=== PATIENT | male | born 1975 | race Caucasian/White ===

== ENCOUNTER 2016-08-10 21:22 | Inpatient (IN) | payer MEDICARE, OTHER ==
[2016-08-10 21:22] VITALS: BMI 22.8
--- NOTE | 2016-08-10 21:45 | C.PDOC ---
History Of Present Illness <Rosita Guillen - Last Filed: 08/10/16 22:49> <Zak Gutiérrez - Last Filed: 08/10/16 23:52> 41 y/o male in ED for detox from heroin., pt uses 10 bags of heroin ivda per day. pt last used about 3 hours ago. pt denies any physical complaints. pt sts he has hx of depression, but denies any current si, hi or ad. (Rosita Guillen) History Per: Patient History/Exam Limitations: no limitations Suicide/Self Injury Attempted (Context): None Recent travel outside of the [place]: No <Rosita Guillen - Last Filed: 08/10/16 22:49> <Zak Gutiérrez - Last Filed: 08/10/16 23:52> Time Seen by Provider: 08/10/16 21:40 Past Medical History Reviewed: Historical Data, Nursing Documentation, Vital Signs - Medical History PMH: Anxiety, Depression, HIV Denies: Diabetes, Hepatitis, HTN, Chronic Kidney Disease, Seizures, Sexually Transmitted Disease Surgical History: No Surg Hx Family History: States: Unknown Family Hx - Social History Hx Tobacco Use: Yes (light smoker) Hx Alcohol Use: Yes Hx Substance Use: Yes - Immunization History Hx Tetanus Toxoid Vaccination: No Hx Influenza Vaccination: No Hx Pneumococcal Vaccination: No <Rosita Guillen - Last Filed: 08/10/16 22:49> Review Of Systems Constitutional: Negative for: Fever, Chills Cardiovascular: Negative for: Chest Pain, Palpitations Respiratory: Negative for: Cough, Shortness of Breath Gastrointestinal: Negative for: Vomiting, Abdominal Pain Genitourinary: Negative for: Dysuria, Frequency, Incontinence, Hematuria Skin: Negative for: Rash Neurological: Negative for: Weakness, Numbness Psych: Negative for: Anxiety, Depression, Suicidal ideation <Rosita Guillen - Last Filed: 08/10/16 22:49> Physical Exam - Physical Exam Appears: Non-toxic, No Acute Distress Skin: Normal Color, Warm, Dry, Other (areas of scabs on upper arms from ivda) Head: Atraumatic, Normacephalic Eye(s): bilateral: Normal Inspection, PERRL Nose: Normal Oral Mucosa: Moist Tongue: Normal Appearing Lips: Normal Appearing Chest: Symmetrical, No Tenderness Cardiovascular: Rhythm Regular, No Murmur Respiratory: Normal Breath Sounds, No Rales, No Rhonchi, No Stridor, No Wheezing Gastrointestinal/Abdominal: Normal Exam, Soft, No Tenderness Neurological/Psych: Oriented x3, Normal Speech, Normal Cognition, No Normal Motor, No Normal Sensation <Rosita Guillen - Last Filed: 08/10/16 22:49> ED Course And Treatment - Laboratory Results Result Diagrams: 08/10/16 22:00 08/10/16 22:00 <Rosita Guillen - Last Filed: 08/10/16 22:49> - Laboratory Results Result Diagrams: 08/10/16 22:00 08/10/16 22:00 Lab Interpretation: Abnormal (opiates, benzo, cocaine) Reevaluation Time: 23:51 Reassessment Condition: Improved - Physician Consult Information Outcome Of Conversation: 2345: d/w Crisis Workers- ok to Detox <Zak Gutiérrez - Last Filed: 08/10/16 23:52> Medical Decision Making <Rosita Guillen - Last Filed: 08/10/16 22:49> <Zak Gutiérrez - Last Filed: 08/10/16 23:52> Medical Decision Making: pt pre-screened for detox program, 1039 pm pt with +1 le in urine and some white cells; denies nay dysuria, frequency or urgency. likely contaminated specimen. will order clean catch to be followed while pt in detox, otherwise pt is medically cleared for psychiatric evaluation discussed with Nocole from Crisis; pt to be fully evaluated after 11 pm. . (Rosita Guillen) Disposition - Disposition Disposition Time: 22:41 <Rosita Guillen - Last Filed: 08/10/16 22:49> Doctor Will See Patient In The: Hospital Counseled Patient/Family Regarding: Studies Performed, Diagnosis <Zak Gutiérrez - Last Filed: 08/10/16 23:52> - Disposition Disposition: HOSPITALIZED Condition: STABLE - Clinical Impression Clinical Impression: Heroin use disorder, moderate, dependence, Benzodiazepine abuse, Cocaine abuse , Depression
[2016-08-10 22:03] LABS: BASO % 0.5 % (0.0-2.0); EOS % 0.3 % (0.0-4.0); HEMATOCRIT 39.8 % (35.0-51.0); LYMPH # 0.9 K/uL (1.0-4.3); LYMPH % 18.2 % (20.0-40.0); MEAN CELL VOLUME 86.1 fL (80.0-94.0); MEAN CORPUSCULAR HEMOGLOBIN 28.7 pg (27.0-31.0); MEAN CORPUSCULAR HGB CONC 33.3 g/dL (33.0-37.0); MONO # 0.7 K/uL (0.0-0.8); MONO % 14.7 % (0.0-10.0); NRBC % 0.1 % (0.0-2.0); RED CELL DISTRIBUTION WIDTH 15.7 % (11.5-14.5); WHITE BLOOD COUNT 4.9 K/uL (4.8-10.8)
[2016-08-10 22:08] LABS: GRANULAR CAST 3 /lpf (0-1); RBC URINE 1 /hpf (0-3); URINE BILIRUBIN NEGATIVE (NEGATIVE); URINE BLOOD NEGATIVE (NEGATIVE); URINE COLOR Yellow (YELLOW); URINE GLUCOSE (UA) NORMAL (Normal); URINE HYALINE CAST >20 /lpf (0-2); URINE KETONE NEGATIVE (NEGATIVE); URINE LEUKOCYTE ESTERASE 1+ Leu/uL (Negative); URINE PROTEIN 1+ mg/dL (NEGATIVE); URINE UROBILINOGEN NORMAL mg/dL (0.2-1.0); WBC URINE 15 /hpf (0-5)
[2016-08-10 22:14] LABS: CHLORIDE 98 mmol/L (98-107)
[2016-08-10 22:15] LABS: SODIUM 139 mmol/L (132-148)
[2016-08-10 22:16] LABS: POTASSIUM 3.9 mmol/L (3.6-5.2)
[2016-08-10 22:18] LABS: ALB/GLOB RATIO 0.9 (1.0-2.1); ALKALINE PHOSPHATASE 83 U/L (38-126); ALT/SGPT 32 U/L (21-72); AST/SGOT 98 U/L (17-59); BILIRUBIN,TOTAL 0.7 mg/dL (0.2-1.3); BLOOD UREA NITROGEN 17 mg/dL (9-20); CARBON DIOXIDE 28 mmol/L (22-30); GFR AFRICAN-AMERICAN > 60; TOTAL PROTEIN 9.5 g/dL (6.3-8.3)
[2016-08-10 22:19] LABS: ALCOHOL SERUM < 10 mg/dl (0-10); CALCIUM 9.8 mg/dl (8.6-10.4); GLUCOSE,RANDOM 107 mg/dL (75-110)
[2016-08-10] MEDS ORDERED: Aluminum Hydroxide/Magnesium Hydroxide Susp (30 mL) PO PRN (23:56)
--- NOTE | 2016-08-11 14:39 | PCM.PSYCH ---
Initial Psychiatric Evaluation - Initial Psychiatric Evaluation Type of Admission: Voluntary Legal Status: Capacity Chief Complaint (in patient's own words): "I'm tired of using and I want to get clean" History of Present Illness and Precipitating Events: 41 y/o male, single, , has one daughter, lives home with his mother, unemployed and supporting his habit by asking for money from friends and family , with a psychiatric history of depression and no significant PMH. Pt was admitted for heroin Detox. He uses 10 bags of heroin (IV) and 1 gram of cocaine (IV) per day. He first started using cocaine and heroin when he was 22 y /o. Pt also admits to using 2-4 mg of Xanax per day and started using when he was in his mid 30s. Pt smokes a pack of cigarettes per day however he does not want a nicotine patch. He denies alcohol use. This is his 2nd admission to detox. His was admitted at [facility] 1 year ago. Pt has never been to rehab. Pt was also hospitalized twice at [facility] for severe depression and the last time he saw a psychiatrist was 2 years ago. Currently the patient denies any withdrawal symptoms. Pt denies homicidal or suicidal ideations, visual or auditory hallucinations or persecutory delusions. His plan is to attend after discharge. Psych Hx: Depression Fam Psych Hx: denies Fam Drug Hx: Father used heroin PMH: denies Current Medications: Active Medications Generic Name Dose Route Start Last Admin Trade Name Freq PRN Reason Stop Dose Admin Al Hydrox/Mg Hydrox/Simethicone 30 ml 08/10/16 23:56 Maalox 30 Ml PO TID PRN Indigestion / Heartburn Chlordiazepoxide 25 mg 08/11/16 18:00 Librium PO 08/15/16 17:59 Q6 BRENDAN Taper Chlordiazepoxide 25 mg 08/11/16 13:20 Librium PO Q4H PRN Alcohol Withdrawal Clonidine HCl 0.1 mg 08/10/16 23:56 Catapres PO Q8 PRN COWS Score More or Equal to 5 Gabapentin 300 mg 08/11/16 10:00 08/11/16 10:09 Neurontin PO Not Given BID BRENDAN Hydroxyzine HCl 50 mg 08/10/16 23:56 08/11/16 01:03 Atarax PO 50 mg Q6H PRN Administration Anxiety Ibuprofen 600 mg 08/10/16 23:56 Motrin Tab PO Q6H PRN Pain, moderate (4-7) Loperamide HCl 2 mg 08/10/16 23:56 Imodium PO Q8 PRN Diarrhea Ondansetron HCl 4 mg 08/10/16 23:56 Zofran Tab PO Q8 PRN Nausea/Vomiting Trazodone HCl 100 mg 08/10/16 23:56 08/11/16 01:03 Desyrel PO 100 mg HS PRN Administration Insomnia Past Psychiatric History - Past Psychiatric History Previous Treatment History: None Pertinent Medical Hx (Current Medical&Sleep Prob, Allergies): Allergies Allergy/AdvReac Type Severity Reaction Status Date / Time No Known Allergies Allergy Verified 08/10/16 21:48 No Known Home Med 08/10/16 Review of Systems - Psychiatric Psychiatric: Abnormal Sleep Pattern, Anxiety. absent: Auditory Hallucinations, Hallucinations, Homicidal Ideation, Irritability, Suicidal Ideation, Visual Hallucinations Mental Status Examination - Personal Presentation Personal Presentation: Looks stated age - Affect Affect: Constricted, Depressed - Motor Activity Motor Activity: Psychomotor Retardation - Reliability in Providing Information Reliability in Providing Information: Fair, Other Additional comments: Pt denies alcohol abuse and his recent labs suggest otherwise. - Speech Speech: Organized, Relevant, Coherent - Mood Mood: Depressed, Anxious - Formal Thought Process Formal Thought Process: No Impairment - Cognitive Functions Orientation: Person, Place, Time Sensorium: Drowsy, Lethargic Abstract Thinking: [place] Estimate of Intelligence: Below average Judgement: Intact, as evidence by: Insight regarding need for hospitalization Memory: Remote impaired as evidenced by: Inability to recall sig life events - Risk Risk: Seizure, Withdrawal, Diminished functioning DSM 5 DX - DSM 5 DSM 5 Diagnosis: Opiate use disorder- Severe Sedative, Hypnotic Use Disorder - severe Opioid withdrawal Sedative, hypnotic withdrawal Cocaine use disorder- severe Depressive disorder unspecified - Recommended/Plan of Treatment Treatment Recommendations and Plan of Treatment: Opiate use disorder- Severe -Subutex detox -Gabapentin -Support and psychoeducation -As needed medications and vitamins -Attend groups and activities -[place] and CBT for abstinence Sedative, Hypnotic Use Disorder - severe -Librium detox -Gabapentin -Support and psychoeducation -As needed medications and vitamins -Attend groups and activities -[place] and CBT for abstinence Cocaine use disorder- severe -Support and Psychoeducation -As needed medications and vitamins -Attend groups and activities -[place] and CBT for abstinence -Routine vitals daily 33 min Projected ELOS: 4 days - Smoking Cessation Smoking Cessation Initiated: Yes
[2016-08-11] MEDS ORDERED: Buprenorphine Hydrochloride 2 mg SL ONE ×2 (20:00→21:00)
[2016-08-12] MEDS: Buprenorphine Hydrochloride 2 mg SL SCH (09:41)
[2016-08-12 10:40] LABS: URINE BACTERIA RARE (<OCC); URINE BILIRUBIN NEGATIVE (NEGATIVE); URINE BLOOD NEGATIVE (NEGATIVE); URINE COLOR Yellow (YELLOW); URINE GLUCOSE (UA) NORMAL (Normal); URINE KETONE NEGATIVE (NEGATIVE); URINE LEUKOCYTE ESTERASE NEG Leu/uL (Negative); URINE PROTEIN NEGATIVE (NEGATIVE); URINE UROBILINOGEN NORMAL mg/dL (0.2-1.0); WBC URINE 1 /hpf (0-5)
--- NOTE | 2016-08-12 17:11 | PCM.PYCHPN ---
Psychiatric Progress Note - Psychiatric Progress Note Patient seen today, length of contact: 15 minutes Patient Chief Complaint: "I'm Doing alright" Problems Identified/Issues Discussed: Pt seen, chart reviewed, and case discussed with staff. Pt is doing better. He is complaining of heat/cold intolerance and night sweats. Pt denies homicidal or suicidal ideations, persecutory delusions or visual and auditory hallucinations. He has no medication side effects. Pt will be going to [facility] after discharge. Medication Change: Yes Medical Record Reviewed: Yes Mental Status Examination - Cognitive Function Orientation: Person, Place, Time Attention: Poor Concentration: Poor Association: WNL Fund of Knowledge: WNL - Mood Mood: Depressed, Anxious - Affect Affect: Constricted, Depressed - Formal Thought Process Formal Thought Process: No Impairment - Suicidal Ideation Suicidal Ideation: No - Homicidal Ideation Homicidal Ideation: No Goal/Treatment Plan - Goal/Treatment Plan Need for Continued Stay: Discharge may exacerbated symptoms, Severe functional impairment Progress Toward Problem(s) and Goals/Treatment Plan: Opiate use disorder- Severe -Subutex detox -Gabapentin -Support and psychoeducation -As needed medications and vitamins -Attend groups and activities -[place] and CBT for abstinence Sedative, Hypnotic Use Disorder - severe -Librium detox -Gabapentin -Support and psychoeducation -As needed medications and vitamins -Attend groups and activities -[place] and CBT for abstinence Cocaine use disorder- severe -Support and Psychoeducation -As needed medications and vitamins -Attend groups and activities -[place] and CBT for abstinence -Paul thorne
[2016-08-12 20:04] VITALS: RESP 18
[2016-08-13 06:25] VITALS: O2SAT 99
[2016-08-13] MEDS: Buprenorphine Hydrochloride 2 mg SL SCH (09:25)
[2016-08-13 09:31] VITALS: BP 124/86; PULSE 90; TEMP 97.8
--- NOTE | 2016-08-13 12:50 | PCM.PYCHDC ---
Mental Status Examination - Mental Status Examination Orientation: Person, Place, Time Memory: Intact Mood: Depressed, Anxious Affect: Constricted, Depressed Speech: Slurred Attention: Poor Concentration: Poor Association: WNL Fund of Knowledge: WNL Formal Thought Process: No Impairment Suicidal Ideation: No Current Homicidal Ideation?: No Discharge Summary - Discharge Note Reason for Hospitalization: Heroin detox Consultations:: List each consultation separately and include: 1. Reason for request. 2. Findings. 3. Follow-up Summary of Hospital Course include:: 1. Description of specific treatment plan utilized for patients during their course of treatmen. 2. Summarize the time- course for resolution of acute symptoms and/or regressed behaviors. 3. Describe issues identified and worked on during hospitalization. 4. Describe medication utilized. 5. Describe medical problems identified and treated. 6. Reassessment of suicide risk Summary of Hospital Course: On admission: 41 y/o male, single, , has one daughter, lives home with his mother, unemployed and supporting his habit by asking for money from friends and family , with a psychiatric history of depression and no significant PMH. Pt was admitted for heroin Detox. He uses 10 bags of heroin (IV) and 1 gram of cocaine (IV) per day. He first started using cocaine and heroin when he was 22 y /o. Pt also admits to using 2-4 mg of Xanax per day and started using when he was in his mid 30s. Pt smokes a pack of cigarettes per day however he does not want a nicotine patch. He denies alcohol use. This is his 2nd admission to detox. His was admitted at [facility] 1 year ago. Pt has never been to rehab. Pt was also hospitalized twice at [facility] for severe depression and the last time he saw a psychiatrist was 2 years ago. Currently the patient denies any withdrawal symptoms. Pt denies homicidal or suicidal ideations, visual or auditory hallucinations or persecutory delusions. His plan is to attend after discharge. Hospital course: Pt seen, chart reviewed, and case discussed with staff. Pt improved, CBT/CA used, denied any symptoms and then wanted to go AMA. Risks discussed, incl. relapse, OD and even - Final Diagnosis (DSM 5) Condition upon Discharge: STABLE DSM 5: Opioid use disorder- Severe Sedative, Hypnotic Use Disorder - severe Opioid withdrawal Sedative, hypnotic withdrawal Cocaine use disorder- severe Depressive disorder unspecified Disposition: AGAINST MEDICAL ADVICE Follow-up Treatment Plan: Use relapse prevention skills Attend NA Return to ER if experience suicidal ideation, homicidal ideation, agitation - Smoking Cessation Smoking Cessation Medication prescribed: No
== END 2016-08-13 12:00 | disposition home or self-care (01) | DRG 895 ==
LOC: C.ER 21:22 → C.7D 23:53 → C.9E 23:53
PROVIDERS: ADMIT Psychiatry & Neurology Psychiatry; ATTEND Psychiatry & Neurology Psychiatry
PROC: HZ2ZZZZ Detoxification Services for Substance Abuse Treatment (ICD-10-PCS; principal; 2016-08-10)
PROC: HZ52ZZZ Individual Psychotherapy for Substance Abuse Treatment, Cognitive-Behavioral (ICD-10-PCS; 2016-08-10)
PROC: HZ93ZZZ Pharmacotherapy for Substance Abuse Treatment, Antabuse (ICD-10-PCS; 2016-08-10)
PROC: HZ59ZZZ Individual Psychotherapy for Substance Abuse Treatment, Supportive (ICD-10-PCS; 2016-08-10)
PROC: HZ56ZZZ Individual Psychotherapy for Substance Abuse Treatment, Psychoeducation (ICD-10-PCS; 2016-08-10)
DX: F11.23 Opioid dependence with withdrawal (principal); F32.9 Major depressive disorder, single episode, unspecified; F14.90 Cocaine use, unspecified, uncomplicated; F13.239 Sedative, hypnotic or anxiolytic dependence with withdrawal, unspecified; F17.210 Nicotine dependence, cigarettes, uncomplicated

== ENCOUNTER 2017-07-18 15:48 | Inpatient (IN) | payer MEDICAID, MEDICARE, OTHER ==
[2017-07-18 15:49] VITALS: BMI 22.8
[2017-07-18 16:20] LABS: BASO % 0.7 % (0.0-2.0); EOS # 0.1 K/uL (0.0-0.7); EOS % 1.3 % (0.0-4.0); HEMOGLOBIN 12.3 g/dL (12.0-18.0); LYMPH # 0.6 K/uL (1.0-4.3); LYMPH % 14.6 % (20.0-40.0); MEAN CORPUSCULAR HEMOGLOBIN 28.2 pg (27.0-31.0); MEAN CORPUSCULAR HGB CONC 33.1 g/dL (33.0-37.0); MEAN PLATELET VOLUME 7.7 fL (7.2-11.7); MONO # 0.4 K/uL (0.0-0.8); MONO % 11.2 % (0.0-10.0); NEUT # 2.9 K/uL (1.8-7.0); NEUT % 72.2 % (50.0-75.0); NRBC % 0.1 % (0.0-2.0); RBC 4.38 Mil/uL (4.40-5.90); RED CELL DISTRIBUTION WIDTH 15.2 % (11.5-14.5)
[2017-07-18 16:25] LABS: SQUAMOUS EPITHIAL 1 /hpf (0-5); URINE BACTERIA RARE (<OCC); URINE BILIRUBIN NEGATIVE (NEGATIVE); URINE BLOOD NEGATIVE (NEGATIVE); URINE CLARITY Hazy (Clear); URINE COLOR Yellow (YELLOW); URINE GLUCOSE (UA) NORMAL (Normal); URINE LEUKOCYTE ESTERASE TRACE Leu/uL (Negative); URINE PROTEIN 1+ mg/dL (NEGATIVE)
[2017-07-18 16:31] LABS: ALB/GLOB RATIO 0.7 (1.0-2.1); ALBUMIN 4.1 g/dL (3.5-5.0); ALT/SGPT 62 U/L (21-72); AST/SGOT 60 U/L (17-59); BLOOD UREA NITROGEN 17 mg/dL (9-20); CALCIUM 9.2 mg/dl (8.6-10.4); GFR AFRICAN-AMERICAN > 60; GFR NON-AFRICAN AMERICAN > 60
[2017-07-18 16:35] LABS: BARBITURATES, UR NEGATIVE (NEGATIVE); BENZODIAZEPINES, UR NEGATIVE (NEGATIVE); OPIATES, UR POSITIVE (NEGATIVE); PHENCYCLIDINE, UR NEGATIVE (NEGATIVE)
[2017-07-18] MEDS ORDERED: Potassium Chloride 20 mEq ER Tab PO STA (16:52)
[2017-07-18] MEDS ORDERED: Potassium Chloride 20 mEq ER Tab PO ONE (17:06)
--- NOTE | 2017-07-18 19:06 | C.PDOC ---
History Of Present Illness 42-year-old male, PMHx includes Heroin abuse (IVDA), presents to the emergency department requesting detox. Patient denies any medical problems. No h/o seizures. No SI/HI. Time Seen by Provider: 07/18/17 15:57 Chief Complaint (Nursing): Substance Abuse History Per: Patient History/Exam Limitations: no limitations Past Medical History Reviewed: Historical Data, Nursing Documentation, Vital Signs Vital Signs: Last Vital Signs Temp 98.5 F 07/19/17 09:22 Pulse 70 07/19/17 09:22 Resp 18 07/19/17 09:22 BP 119/77 07/19/17 09:22 Pulse Ox 100 07/19/17 09:22 - Medical History PMH: Anxiety, Depression Denies: Diabetes (Patient denied), Hepatitis (Patient denied), HIV (Patient denied), HTN (Patient denied), Chronic Kidney Disease, Seizures (Patient denied) , Sexually Transmitted Disease (Patient denied) - [facility] Procedures DETOXIFICATION SERVICES FOR SUBSTANCE ABUSE TREATMENT (08/10/16) GROUP DOUBLE END SEWER FOR SUBSTANCE ABUSE TREATMENT, PSYCHOEDUCATION (03/12/16) INDIV PSYCHOTHERAPY FOR SUBSTANCE ABUSE TREATMENT, SUPPORT (08/10/16) INDIV PSYCHOTHERAPY FOR SUBSTANCE ABUSE, COGNITIV BEHAVIORAL (08/10/16) INDIV PSYCHOTHERAPY FOR SUBSTANCE ABUSE, PSYCHOEDUCATION (08/10/16) PHARMACOTHERAPY FOR SUBSTANCE ABUSE TREATMENT, ANTABUSE (08/10/16) PSYCHIA INTERV/EVAL NEC (10/05/14) Family History: States: No Known Family Hx - Social History Hx Tobacco Use: Yes (light smoker) Hx Alcohol Use: No Hx Substance Use: Yes - Immunization History Hx Tetanus Toxoid Vaccination: No Hx Influenza Vaccination: No Hx Pneumococcal Vaccination: No Review Of Systems Constitutional: Negative for: Fever Cardiovascular: Negative for: Chest Pain Respiratory: Negative for: Shortness of Breath Psych: Negative for: Suicidal ideation, Withdrawal Physical Exam - Physical Exam Appears: Non-toxic, No Acute Distress Skin: Warm, Dry, No Rash Head: Atraumatic, Normacephalic Eye(s): bilateral: Normal Inspection, EOMI Nose: Normal Oral Mucosa: Moist Neck: Normal ROM, Supple Chest: Symmetrical Cardiovascular: Rhythm Regular Respiratory: Normal Breath Sounds, No Accessory Muscle Use Extremity: Normal ROM, No Deformity, No Swelling, Other (track jara, B/L upper extremities) Neurological/Psych: Oriented x3, Normal Speech ED Course And Treatment - Laboratory Results Result Diagrams: 07/18/17 16:15 07/18/17 16:15 O2 Sat by Pulse Oximetry: 97 (RA) Pulse Ox Interpretation: Normal Progress Note: Patients urinalysis evaluated. Patient does not complain of any dysuria, frequency, hematuria, testicular pain, or penile discharge. Urine culture sent, outpt f/u suggested. Case discussed with Dr Cordova, agreed upon plan and treatment. Pt admitted for detox under Dr Brooks. Disposition - Disposition Disposition: HOSPITALIZED Disposition Time: 17:00 Condition: STABLE - Clinical Impression Clinical Impression: Opioid dependence, Hypokalemia - Scribe Statement The provider has reviewed the documentation as recorded by the Scribe (Anika Mckeon) All medical record entries made by the Scribe were at my direction and personally dictated by me. I have reviewed the chart and agree that the record accurately reflects my personal performance of the history, physical exam, medical decision making, and the department course for this patient. I have also personally directed, reviewed, and agree with the discharge instructions and disposition.
--- NOTE | 2017-07-18 22:08 | PCM.BM ---
<RcViridiana - Last Filed: 07/18/17 22:07> Treatment Plan Problems - Problems identified on initial assessmt Potential for opiate withdrawal Date Initiated: 07/18/17 Time Initiated: 22:07 Assessment reference: NA Status: Active Treatment assets and liabiliti Patient Assests: cooperative, ADL independent, negotiates basic needs, cognitively intact Patient Liabilities: substance abuse (opi,ates,THC,cocaine) - Milieu Protocol Maintain good personal hygiene: daily Encourage regular showers, daily Remind patient to perform daily oral care, daily Assist patient to perform ADL's Conduct patient checks and document Observation sheet: Q15 minutes Maintain personal safety: every shift Educate patient to report safety concerns to staff, every shift Monitor environment for contraband/sharps Medication safety: Monitor for expected outcome, potential side effects: every shift, Assess barriers to learning: every shift, Assess readiness for medication education: every shift <Zaheer Brooks - Last Filed: 07/19/17 17:25> - Diagnosis (1) Opioid dependence Status: Acute Interventions: 07/19/17 17:25 * Assess 7x/week regarding severity of withdrawal * Educate regarding risks, benefits, side effects and alternatives of medications * Use Motivational Interviewing for abstinence * Use CBT for relapse prevention * Medication management for withdrawal symptoms * Encourage medication assisted treatment * <Fanny Pierce - Last Filed: 07/22/17 14:01> Family Contact Family involvement: Famliy/SO not involved - Goals for Treatment Patient goals for treatment: Complete detox and transition to inpatient rehab. Discharge/Continuing Care - Education Needs Education Needs: Patient Medication, Patient Diagnosis/Disease Process, Patient Coping Skills, Patient Anger Management skills, Patient Placement options, Patient Community resources - Discharge Discharge Criteria: Ability to care for self, No longer exhibiting s/s of withdrawal, Reduction of target symptoms Discharge to:: Substance Abuse Rehab - Treatment Team Participation Patient/Family/SO Statement: 07/22/17 14:01 "I wanna go to [facility] from here. I need someone to pound it into my head..." Discussed with Family/SO: No Was Patient/Family/SO present at Treatment Team Meeting: Yes
[2017-07-18] MEDS ORDERED: Aluminum Hydroxide/Magnesium Hydroxide Susp (30 mL) PO PRN (23:05)
--- NOTE | 2017-07-19 12:52 | PCM.PSYCH ---
Initial Psychiatric Evaluation - Initial Psychiatric Evaluation Type of Admission: Voluntary Legal Status: Capacity Chief Complaint (in patient's own words): "Withdrawing" History of Present Illness and Precipitating Events: The pt is seen, chart reviewed. He is known from previous admissions. 42 y/o male, single, , has one daughter, lives with his mother on and off but practically homeless, unemployed. Pt was admitted for heroin detox again. He uses up to 20 bags of heroin (IV) and 1/2 gram of cocaine (IV) per day. He first started using cocaine and heroin when he was 22 y/o. Pt also admits to using 4-6 mg of Xanax per day and started using when he was in his mid 30s. Pt smokes a pack of cigarettes per day however he does not want a nicotine patch. He denies alcohol use. This is his 3rd or 4th admission to detox. Pt has never been to rehab. Pt was also hospitalized twice at [facility] for severe depression and more recently [facility] with substance- induced depression. He tends to leave [facility] - [facility] and he said he has to complete detox. Past psych hx: As above. Depression. No suicide attempts. Family psych hx: Denied Medical hx: Denied Current Medications: Active Medications Generic Name Dose Route Start Last Admin Trade Name Freq PRN Reason Stop Dose Admin Al Hydrox/Mg Hydrox/Simethicone 30 ml 07/18/17 23:05 Maalox 30 Ml PO TID PRN Indigestion / Heartburn Clonidine HCl 0.1 mg 07/18/17 23:05 07/19/17 06:35 Catapres PO 0.1 mg Q8 PRN Administration COWS Score More or Equal to 5 Gabapentin 300 mg 07/19/17 10:00 07/19/17 10:06 Neurontin PO 300 mg TID BRENDAN Administration Hydroxyzine HCl 50 mg 07/18/17 23:05 07/19/17 06:34 Atarax PO 50 mg Q6 PRN Administration Anxiety Ibuprofen 600 mg 07/18/17 23:07 Motrin Tab PO Q6H PRN Pain, moderate (4-7) Loperamide HCl 2 mg 07/18/17 23:05 Imodium PO Q8 PRN Diarrhea Methadone HCl 20 mg 07/19/17 10:00 07/19/17 10:07 Methadone PO 07/23/17 09:59 20 mg Q24H BRENDAN Administration Taper Ondansetron HCl 4 mg 07/18/17 23:05 Zofran Tab PO Q8 PRN Nausea/Vomiting Trazodone HCl 100 mg 07/18/17 21:56 Desyrel PO HS PRN Insomnia Past Psychiatric History - Past Psychiatric History Previous Treatment History: Inpatient Pertinent Medical Hx (Current Medical&Sleep Prob, Allergies): Allergies Allergy/AdvReac Type Severity Reaction Status Date / Time No Known Allergies Allergy Verified 07/18/17 15:57 No Known Home Med 07/18/17 Review of Systems - Neurological Neurological: Tremor - Psychiatric Psychiatric: Abnormal Sleep Pattern, Anxiety, Change in Appetite, Difficulty Concentrating, Irritability. absent: Hallucinations, Homicidal Ideation, Hopelessness, Suicidal Ideation Mental Status Examination - Personal Presentation Personal Presentation: Looks stated age - Affect Affect: Constricted - Motor Activity Motor Activity: Calm - Reliability in Providing Information Reliability in Providing Information: Fair - Speech Speech: Organized - Mood Mood: Depressed, Anxious - Formal Thought Process Formal Thought Process: No Impairment - Cognitive Functions Orientation: Person, Place, Situation, Time Sensorium: Alert Attention/Concentration: Attentive Estimate of Intelligence: Average Judgement: Intact, as evidence by: Insight regarding need for hospitalization Memory: Remote impaired as evidenced by: Inability to recall sig life events - Risk Risk: Withdrawal, Diminished functioning - Strength & Assets Inventory Strength & Assets Inventory: Cooperative - Limitations Limitations: Living alone DSM 5 DX - DSM 5 DSM 5 Diagnosis: Opioid use disorder- Severe Sedative, Hypnotic Use Disorder - severe, with withdrawal Opioid withdrawal Cocaine use disorder- severe Depressive disorder unspecified Personality disorder unspecified but r/o ASPD - Recommended/Plan of Treatment Treatment Recommendations and Plan of Treatment: Opioid use disorder- Severe -Methadone detox -Support and psychoeducation -As needed medications -Attend groups and activities -[place] and CBT for abstinence Sedative, Hypnotic Use Disorder - severe -Librium detox -Gabapentin for augmentation -Support and psychoeducation -As needed medications -Attend groups and activities -[place] and CBT for abstinence Cocaine use disorder- severe -Support and Psychoeducation -As needed medications, and gabapentin -Attend groups and activities -[place] and CBT for abstinence -Routine vitals daily Nicotine patch and MA for abstinence Risks of meds discussed and he understood and agreed AMA risk addressed After care discussed Depression: No meds for now but will provide indiv counseling and CBT 33 min
[2017-07-19 20:18] LABS: BLOOD UREA NITROGEN 18 mg/dL (9-20); CALCIUM 8.9 mg/dl (8.6-10.4); GFR AFRICAN-AMERICAN > 60; GFR NON-AFRICAN AMERICAN > 60
[2017-07-20] MEDS ORDERED: HYDROmorphone 0.5 mg/0.5 ml ISec ONE (10:56)
[2017-07-20] MEDS: Hydrocortisone 1% Cream (30 GM) TOP SCH ×3 (11:24→18:09)
--- NOTE | 2017-07-20 13:33 | PCM.PYCHPN ---
Psychiatric Progress Note - Psychiatric Progress Note Patient seen today, length of contact: 16 min Patient Chief Complaint: "I couldn't sleep well" Problems Identified/Issues Discussed: The pt is seen, chart reviewed, case discussed with staff. Support given, CBT and NV used briefly No new symptoms reported, improving slowly and needs more time No SEs from medications, risks discussed. After care discussed Hep C result is discussed Medication Change: Yes (detox changes daily) Medical Record Reviewed: Yes Mental Status Examination - Cognitive Function Orientation: Person, Place, Situation, Time Memory: Intact Attention: WNL Concentration: Poor Association: WNL Fund of Knowledge: WNL - Mood Mood: Depressed, Anxious - Affect Affect: Constricted - Speech Speech: Appropriate - Formal Thought Process Formal Thought Process: No Impairment - Suicidal Ideation Suicidal Ideation: No - Homicidal Ideation Homicidal Ideation: No Goal/Treatment Plan - Goal/Treatment Plan Need for Continued Stay: Discharge may exacerbated symptoms, Severe functional impairment Progress Toward Problem(s) and Goals/Treatment Plan: Opioid use disorder- Severe -Methadone detox -Support and psychoeducation -As needed medications -Attend groups and activities -NV and CBT for abstinence Sedative, Hypnotic Use Disorder - severe -Librium detox -Gabapentin for augmentation -Support and psychoeducation -As needed medications -Attend groups and activities -NV and CBT for abstinence Cocaine use disorder- severe -Support and Psychoeducation -As needed medications, and gabapentin -Attend groups and activities -NV and CBT for abstinence -Routine vitals daily Nicotine patch and NV for abstinence Risks of meds discussed and he understood and agreed AMA risk addressed After care discussed Depression: No meds for now but will provide indiv counseling and CBT
[2017-07-21] MEDS: Hydrocortisone 1% Cream (30 GM) TOP SCH ×3 (10:12→18:30)
--- NOTE | 2017-07-21 13:54 | PCM.PYCHPN ---
Psychiatric Progress Note - Psychiatric Progress Note Patient seen today, length of contact: 15 min Patient Chief Complaint: "I'm not well, withdrawing" Problems Identified/Issues Discussed: The pt is seen, chart reviewed, case discussed with staff. Support given, CBT and MN used briefly No new symptoms reported but ongoing wdw, improving slowly and needs more time Ongoing symptoms, extra 5mg MTD given No SEs from medications, risks discussed. After care discussed - still wants rehab Medication Change: Yes (detox changes daily) Medical Record Reviewed: Yes Mental Status Examination - Cognitive Function Orientation: Person, Place, Situation, Time Memory: Intact Attention: WNL Concentration: Poor Association: WNL Fund of Knowledge: WNL - Mood Mood: Depressed, Anxious - Affect Affect: Constricted - Speech Speech: Appropriate - Formal Thought Process Formal Thought Process: No Impairment - Suicidal Ideation Suicidal Ideation: No - Homicidal Ideation Homicidal Ideation: No Goal/Treatment Plan - Goal/Treatment Plan Need for Continued Stay: Discharge may exacerbated symptoms, Severe functional impairment Progress Toward Problem(s) and Goals/Treatment Plan: Opioid use disorder- Severe -Methadone detox -Support and psychoeducation -As needed medications -Attend groups and activities -MN and CBT for abstinence Sedative, Hypnotic Use Disorder - severe -Librium detox -Gabapentin for augmentation -Support and psychoeducation -As needed medications -Attend groups and activities -MN and CBT for abstinence Cocaine use disorder- severe -Support and Psychoeducation -As needed medications, and gabapentin -Attend groups and activities -MN and CBT for abstinence -Routine vitals daily Nicotine patch and MN for abstinence Risks of meds discussed and he understood and agreed AMA risk addressed After care discussed Depression: No meds for now but will provide indiv counseling and CBT
[2017-07-22] MEDS: Hydrocortisone 1% Cream (30 GM) TOP SCH ×3 (09:22→17:02)
--- NOTE | 2017-07-22 13:26 | PCM.PYCHPN ---
Psychiatric Progress Note - Psychiatric Progress Note Patient seen today, length of contact: 15 min Patient Chief Complaint: "I'm doing better" Problems Identified/Issues Discussed: The pt is seen, chart reviewed, case discussed with staff. Support given, CBT and CO used briefly No new symptoms reported but ongoing wdw, improving slowly and needs more time Ongoing symptoms, extra 5mg MTD given again No SEs from medications, risks discussed. After care discussed - interested in rehab Patient seems to be feeling much better Medication Change: Yes (detox changes daily) Medical Record Reviewed: Yes Mental Status Examination - Cognitive Function Orientation: Person, Place, Situation, Time Memory: Intact Attention: WNL Concentration: Poor Association: WNL Fund of Knowledge: WNL - Mood Mood: Depressed, Anxious - Affect Affect: Constricted - Speech Speech: Appropriate - Formal Thought Process Formal Thought Process: No Impairment - Suicidal Ideation Suicidal Ideation: No - Homicidal Ideation Homicidal Ideation: No Goal/Treatment Plan - Goal/Treatment Plan Need for Continued Stay: Discharge may exacerbated symptoms, Severe functional impairment Progress Toward Problem(s) and Goals/Treatment Plan: Continue medications Support and psychoeducation daily Attend groups and activities daily After care planning by NICOLAS
[2017-07-22 16:10] VITALS: RESP 18
--- NOTE | 2017-07-23 08:53 | PCM.PYCHDC ---
Mental Status Examination - Mental Status Examination Orientation: Person Discharge Summary - Discharge Note Consultations:: List each consultation separately and include: 1. Reason for request. 2. Findings. 3. Follow-up Summary of Hospital Course include:: 1. Description of specific treatment plan utilized for patients during their course of treatmen. 2. Summarize the time- course for resolution of acute symptoms and/or regressed behaviors. 3. Describe issues identified and worked on during hospitalization. 4. Describe medication utilized. 5. Describe medical problems identified and treated. 6. Reassessment of suicide risk Summary of Hospital Course: The pt is seen, chart reviewed. He is known from previous admissions. 42 y/o male, single, , has one daughter, lives with his mother on and off but practically homeless, unemployed. Pt was admitted for heroin detox again. He uses up to 20 bags of heroin (IV) and 1/2 gram of cocaine (IV) per day. He first started using cocaine and heroin when he was 22 y/o. Pt also admits to using 4-6 mg of Xanax per day and started using when he was in his mid 30s. Pt smokes a pack of cigarettes per day however he does not want a nicotine patch. He denies alcohol use. This is his 3rd or 4th admission to detox. Pt has never been to rehab. Pt was also hospitalized twice at [facility] for severe depression and more recently [place] inpatient psych with substance- induced depression. He tends to leave [facility] - [facility] and he said he has to complete detox. Past psych hx: As above. Depression. No suicide attempts. Family psych hx: Denied Medical hx: Denied Wait listed in [facility]. - Diagnosis (1) Opioid dependence Current Visit: Yes Status: Acute - Final Diagnosis (DSM 5) Condition upon Discharge: STABLE Disposition: HOME/ ROUTINE Follow-up Treatment Plan: Continue medications Support and psychoeducation daily Attend groups and activities daily After care planning by NICOLAS Prescriptions/Medication Reconciliation: Gabapentin [Neurontin] 300 mg PO TID #90 cap traZODone [Desyrel] 100 mg PO HS PRN #30 tab PRN Reason: Insomnia
[2017-07-23 09:01] VITALS: BP 119/76; PULSE 68; TEMP 97; O2SAT 97
[2017-07-23] MEDS: Hydrocortisone 1% Cream (30 GM) TOP SCH (09:40)
--- NOTE | 2017-07-23 14:50 | PCM.PYCHDC ---
Mental Status Examination - Mental Status Examination Orientation: Person, Place, Situation, Time Memory: Intact Affect: Broad Speech: Appropriate Attention: WNL Concentration: WNL Association: WNL Fund of Knowledge: WNL Formal Thought Process: No Impairment Suicidal Ideation: No Current Homicidal Ideation?: No Discharge Summary - Discharge Note Reason for Hospitalization: Opiate, Xanax Detox Consultations:: List each consultation separately and include: 1. Reason for request. 2. Findings. 3. Follow-up Summary of Hospital Course include:: 1. Description of specific treatment plan utilized for patients during their course of treatmen. 2. Summarize the time- course for resolution of acute symptoms and/or regressed behaviors. 3. Describe issues identified and worked on during hospitalization. 4. Describe medication utilized. 5. Describe medical problems identified and treated. 6. Reassessment of suicide risk Summary of Hospital Course: On Admission: 42 y/o male, single, , has one daughter, lives with his mother on and off but practically homeless, unemployed. Pt was admitted for heroin detox again. He uses up to 20 bags of heroin (IV) and 1/2 gram of cocaine (IV) per day. He first started using cocaine and heroin when he was 22 y/o. Pt also admits to using 4-6 mg of Xanax per day and started using when he was in his mid 30s. Pt smokes a pack of cigarettes per day however he does not want a nicotine patch. He denies alcohol use. This is his 3rd or 4th admission to detox. Pt has never been to rehab. Pt was also hospitalized twice at [facility] for severe depression and more recently [place] inpatient psych with substance- induced depression. He tends to leave [facility] - [facility] and he said he has to complete detox. Past psych hx: As above. Depression. No suicide attempts. Family psych hx: Denied Medical hx: Denied Hospital Course: The pt was admitted and started on treatment with psychotherapy, support, psychoeducation and medications. IA and CBT used. The pt attended groups and activities, as well as milieu therapy. All the risks and benefits of medications are discussed and the patient understood and agreed. The pt improved with the treatments provided. After care discussed with the patient. Wait listed in [facility]. - Final Diagnosis (DSM 5) Condition upon Discharge: IMPROVED DSM 5: Opioid use disorder- Severe Sedative, Hypnotic Use Disorder - severe, with withdrawal Opioid withdrawal Cocaine use disorder- severe Depressive disorder unspecified Personality disorder unspecified Disposition: HOME/ ROUTINE Follow-up Treatment Plan: Continue below medications after discharge. Follow after care plan as discussed. Use relapse prevention skills Return to ER or call 911 if suicidal, homicidal or symptoms relapse. Stay away from stress, alcohol and drugs. See primary doctor regularly and get labs. Prescriptions/Medication Reconciliation: Gabapentin [Neurontin] 300 mg PO TID #90 cap traZODone [Desyrel] 100 mg PO HS PRN #30 tab PRN Reason: Insomnia
== END 2017-07-23 10:12 | disposition home or self-care (01) | DRG 895 ==
LOC: C.ER 15:48 → C.9E 18:29 → C.7D 21:16
PROVIDERS: ADMIT Psychiatry & Neurology Psychiatry; ATTEND Psychiatry & Neurology Psychiatry
PROC: HZ2ZZZZ Detoxification Services for Substance Abuse Treatment (ICD-10-PCS; principal; 2017-07-18)
PROC: HZ56ZZZ Individual Psychotherapy for Substance Abuse Treatment, Psychoeducation (ICD-10-PCS; 2017-07-18)
PROC: HZ59ZZZ Individual Psychotherapy for Substance Abuse Treatment, Supportive (ICD-10-PCS; 2017-07-18)
PROC: GZ56ZZZ Individual Psychotherapy, Supportive (ICD-10-PCS; 2017-07-18)
PROC: HZ90ZZZ Pharmacotherapy for Substance Abuse Treatment, Nicotine Replacement (ICD-10-PCS; 2017-07-18)
DX: F11.23 Opioid dependence with withdrawal (principal); F13.239 Sedative, hypnotic or anxiolytic dependence with withdrawal, unspecified; E87.6 Hypokalemia; F14.10 Cocaine abuse, uncomplicated; F32.9 Major depressive disorder, single episode, unspecified; F60.2 Antisocial personality disorder; F17.210 Nicotine dependence, cigarettes, uncomplicated; Z59.0 Homelessness